=== PATIENT | male | born 1975 | race Caucasian/White ===

== ENCOUNTER 2020-05-03 11:11 | Inpatient (IN) ==
[2020-05-03] MEDS ORDERED: ONDANSETRON 4 MG/2 ML VIAL IV STA (11:55)
[2020-05-03] MEDS ORDERED: HYDROmorphone 2 MG/1 ML VIAL IV STA ×2 (11:55→12:22)
[2020-05-03 12:18] LABS: Basophils % 0.4 % (0.0-0.8); Eosinophils # 0.2 10*3/uL (0.0-0.87); Eosinophils % 1.9 % (0.00-10.9); Hematocrit 43.8 VOL% (42.0-52.0); Hemoglobin 15.4 GM/DL (14.0-18.0); Immature Granulocytes % 0.4 %; Immature Granulocytes Absolute 0.03 #; Lymphocytes # 1.2 10*3/uL (1.4-4.0); Lymphocytes % 14.8 % (21.2-54.2); Mean Corpuscular HGB Conc 35.2 GM/DL (32-36); Mean Corpuscular Volume 88.1 FL (87-102); Mean Platelet Volume 9.7 FL (9.6-12.0); Monocytes % 4.7 % (1.7-12.7); Neutrophils % 77.8 % (38.7-73.9); Platelet Count 257 T/CUMM (130-400); Red Blood Count 4.97 MC/CUMM (3.8-5.5); Red Cell Distribution Width 12.8 % (9.3-17.3); White Blood Count 8.1 T/CUMM (4-12)
[2020-05-03 12:31] LABS: INR 1.1; PT Patient Result 11.6 SECS (9.8-11.9); Partial Thromboplastin Time 26.5 SECS (23.9-33.8)
[2020-05-03 12:40] LABS: Calcium 9.5 MG/DL (8.5-10.1); Osmolality,Calculated 283.1 MOS/KG (273-304); Potassium 3.6 MMOL/L (3.5-5.1)
[2020-05-03] MEDS ORDERED: fentaNYL 100 MCG/2 ML VIAL ONE ×2 (12:55→13:52)
[2020-05-03] MEDS ORDERED: MIDAZOLAM 2 MG/2 ML VIAL ONE (12:55)
[2020-05-03] MEDS ORDERED: ceFAZolin 2,000 MG in SYRINGE 1 EACH IV ONE (13:03)
[2020-05-03] MEDS ORDERED: diphenhydrAMINE CAP 25 MG CAPSULE PO PRN (14:48)
[2020-05-03] MEDS ORDERED: KETOROLAC 15 MG/1 ML VIAL IV PRN (14:48)
[2020-05-03] MEDS ORDERED: ONDANSETRON 4 MG/2 ML VIAL IV PRN ×2 (14:48→15:12)
[2020-05-03] MEDS ORDERED: MORPHINE 4 MG/1 ML VIAL IV PRN ×2 (14:48→15:07)
[2020-05-03] MEDS ORDERED: PROMETHAZINE 25 MG/1 ML VIAL IM PRN (14:48)
[2020-05-03] MEDS ORDERED: MAGNESIUM HYDROXIDE SUSP 30 ML UDCUP PO PRN (14:48)
[2020-05-03] MEDS ORDERED: ROCURONIUM 50 MG/5 ML VIAL IV ONE (14:49)
[2020-05-03] MEDS ORDERED: DEXAMETHASONE 4 MG/1 ML VIAL ONE (14:49)
[2020-05-03] MEDS ORDERED: ONDANSETRON 4 MG/2 ML VIAL ONE (14:50)
[2020-05-03] MEDS ORDERED: LIDOCAINE 2% 5 ML VIAL ONE (14:50)
[2020-05-03] MEDS ORDERED: SUCCINYLCHOLINE 200 MG/10 ML VIAL ONE (14:50)
[2020-05-03] MEDS ORDERED: propofoL 200 MG/20 ML VIAL IV ONE (14:50)
[2020-05-03] MEDS ORDERED: KETOROLAC 30 MG/1 ML VIAL ONE (14:50)
[2020-05-03] MEDS ORDERED: ACETAMINOPHEN 1,000 MG/100 ML VIAL IV ONE (14:50)
[2020-05-03] MEDS ORDERED: SEVOFLURANE 1 UNIT/15 MINUTE INH ONE (14:54)
[2020-05-03] MEDS ORDERED: LACTATED RINGERS 1,000 ML IV SCH (15:00)
[2020-05-03] MEDS ORDERED: MEPERIDINE 25 MG/1 ML VIAL IV PRN (15:12)
[2020-05-03] MEDS ORDERED: HYDROmorphone 2 MG/1 ML VIAL IV PRN (15:12)
[2020-05-03] MEDS ORDERED: INFLUENZA VIRUS VACCINE 0.5 ML SYRINGE IM ONE (17:46)
[2020-05-03] MEDS: ceFAZolin 1,000 MG in SYRINGE 1 EACH IV SCH (19:15)
[2020-05-04] MEDS: ceFAZolin 1,000 MG in SYRINGE 1 EACH IV SCH (03:10)
[2020-05-04 08:14] VITALS: BP 125/89
== END 2020-05-04 11:35 | disposition home or self-care (01) | DRG 494 ==
LOC: N.ED 11:11 → N.EDINP 12:25 → N.3E 13:30
PROVIDERS: ADMIT Orthopaedic Surgery; ATTEND Orthopaedic Surgery